=== PATIENT | male | born 1990 | race African-American/Black ===

== ENCOUNTER 2021-02-17 01:18 | Emergency (ER) | payer SELFPAY ==
[~2021-02-17] VITALS: Ht 172.7 cm; Wt 97.1 kg
--- NOTE | 2021-02-17 01:23 | PHYS DOC ---
Past History Past Medical History: Constipation General Adult HPI: HPI: "I have been constipated ever since I got the [employer] Covid shot.. I have not had a good stool for a week..." Patient is a 30 year old male prisoner [facility] who presents with above hx and complaints of constipation. Patient is serving a 6-month sentence for felon in possession of firearm. Denies any history of recent Covid exposure and has tested negative on previous testing at the [facility]. Patient normally healthy. No recent travel. Originally from [facility]. No history of bad food intake. No previous history of abdomen surgery. No previous history of persistent constipation. Did receive [employer] Covid vaccination approximate 1 week ago. No history of immuno suppression. Review of Systems: Review of Systems: Constitutional: Denies fever or chills Eyes: Denies change in visual acuity HENT: Denies nasal congestion or sore throat Respiratory: Denies cough or shortness of breath Cardiovascular: Denies chest pain or edema GI: Denies abdominal pain, nausea, vomiting, bloody stools or diarrhea. Complains of constipation : Denies dysuria Musculoskeletal: Denies back pain or joint pain Integument: Denies rash Neurologic: Denies headache, focal weakness or sensory changes Endocrine: Denies polyuria or polydipsia Lymphatic: Denies swollen glands Psychiatric: Denies depression or anxiety Family History: Family History: Noncontributory to presentation Current Medications: Current Meds: See nursing for home meds Allergies: Allergies: No known drug allergies Physical Exam: PE: Constitutional: Well developed, well nourished, no acute distress, non-toxic appearance. [] HENT: Normocephalic, atraumatic, bilateral external ears normal, oropharynx moist, no oral exudates, nose normal. [] Eyes: PERRLA, EOMI, conjunctiva normal, no discharge. [] Neck: Normal range of motion, no tenderness, supple, no stridor. [] Cardiovascular:Heart rate regular rhythm, no murmur [] Lungs & Thorax: Bilateral breath sounds equal apex few scattered wheezes on auscultation [] Abdomen: Bowel sounds normal, soft, no tenderness, no masses, no pulsatile masses. Very distended abdomen. Hard stool in rectal vault. Glycerin suppository placed. No focal areas of rebound.. Normal male anatomy. Testicles descended. Skin: Warm, dry, no erythema, no rash. [] Back: No tenderness, no CVA tenderness. [] Extremities: No tenderness, no cyanosis, no clubbing, ROM intact, no edema. [] No psoas sign. Neurologic: Alert and oriented X 3, normal motor function, normal sensory function, no focal deficits noted. [] Psychologic: Affect anxious, judgement normal, mood normal. [] EKG: EKG: [] Radiology/Procedures: Radiology/Procedures: [] Heart Score: C/O Chest Pain: N/A Risk Factors: Risk Factors: DM, Current or recent (<one month) smoker, HTN, HLP, family history of CAD, obesity. Risk Scores: Score 0 - 3: 2.5% MACE over next 6 weeks - Discharge Home Score 4 - 6: 20.3% MACE over next 6 weeks - Admit for Clinical Observation Score 7 - 10: 72.7% MACE over next 6 weeks - Early Invasive Strategies Course & Med Decision Making: Course & Med Decision Making Pertinent Labs and Imaging studies reviewed. (See chart for details) Patient stay on a clear fluid diet only for the next 2 days. No solids or milk products. Patient follow-up primary care. Patient told to expect some cramping when the mag citrate begins to work. Return if any concerns. May take Tylenol and ibuprofen for pain. Reexam if no improvement. Reexam if any concerns. Impression; 1. Constipation 2. Covid vaccination-completed 1 week ago [employer] [] Dragon Disclaimer: Dragon Disclaimer: This electronic medical record was generated, in whole or in part, using a voice recognition dictation system. Departure Departure: Referrals: PCP,NO (PCP) Dragon Disclaimer This chart was dictated in whole or in part using Voice Recognition software in a busy, high-work load, and often noisy Emergency Department environment. It may contain unintended and wholly unrecognized errors or omissions. Dragon Disclaimer This chart was dictated in whole or in part using Voice Recognition software in a busy, high-work load, and often noisy Emergency Department environment. It may contain unintended and wholly unrecognized errors or omissions. JOSEPH COSBY MD Feb 17, 2021 01:23
[2021-02-17] MEDS ORDERED: GLYCERIN ADULT 1 SUPP.RECT. ONE (01:40)
[2021-02-17] MEDS ORDERED: MAGNESIUM CITRATE 296 ML SOLUTION. PO ONE (02:00)
[2021-02-17] MEDS ORDERED: GLYCERIN ADULT 1 SUPP.RECT. PR ONE (02:00)
[2021-02-17 02:16] VITALS: BP 145/86
== END 2021-02-17 02:15 | disposition home or self-care (01) ==
LOC: ER 01:18
DX: K59.00 Constipation, unspecified (principal)
CPT/HCPCS: 99283